=== PATIENT | male | born 1965 | race Caucasian/White ===

== ENCOUNTER 2018-09-26 08:32 | Outpatient (CLI) | payer BC | END 2018-09-26 23:59 | disposition home or self-care (01) | LOC: CFH 08:32 | PROVIDERS: ATTEND Internal Medicine Cardiovascular Disease | DX: I21.19 ST elevation (STEMI) myocardial infarction involving other coronary artery of inferior wall (principal); I10 Essential (primary) hypertension | CPT/HCPCS: 78452; 93017; A9502; J2785 ==

== ENCOUNTER 2018-09-30 07:38 | Inpatient (IN) | payer BC ==
[~2018-09-30] VITALS: Ht 172.7 cm; Wt 135.5 kg
[2018-10-01 07:45] VITALS: BP 167/96
== END 2018-10-01 13:50 | disposition home or self-care (01) | DRG 247 ==
LOC: ED 09:24 → EDIP 10:57 → 5SO 12:33 → DCLOUNGE 10-01 12:35
PROVIDERS: ADMIT Internal Medicine; ATTEND Internal Medicine
PROC: 027035Z Dilation of Coronary Artery, One Artery with Two Drug-eluting Intraluminal Devices, Percutaneous Approach (ICD-10-PCS; principal; 2018-09-30)
PROC: 027034Z Dilation of Coronary Artery, One Artery with Drug-eluting Intraluminal Device, Percutaneous Approach (ICD-10-PCS; 2018-09-30)
PROC: 4A023N7 Measurement of Cardiac Sampling and Pressure, Left Heart, Percutaneous Approach (ICD-10-PCS; 2018-09-30)
PROC: B2111ZZ Fluoroscopy of Multiple Coronary Arteries using Low Osmolar Contrast (ICD-10-PCS; 2018-09-30)
PROC: B2151ZZ Fluoroscopy of Left Heart using Low Osmolar Contrast (ICD-10-PCS; 2018-09-30)
PROC: 5A09357 Assistance with Respiratory Ventilation, Less than 24 Consecutive Hours, Continuous Positive Airway Pressure (ICD-10-PCS; 2018-10-01)
DX: I25.110 Atherosclerotic heart disease of native coronary artery with unstable angina pectoris (principal); I10 Essential (primary) hypertension; E78.5 Hyperlipidemia, unspecified; G47.33 Obstructive sleep apnea (adult) (pediatric); E87.6 Hypokalemia; E66.9 Obesity, unspecified; Z80.1 Family history of malignant neoplasm of trachea, bronchus and lung; Z82.49 Family history of ischemic heart disease and other diseases of the circulatory system; Z86.73 Personal history of transient ischemic attack (TIA), and cerebral infarction without residual deficits; Z87.891 Personal history of nicotine dependence; Z79.899 Other long term (current) drug therapy; Z68.42 Body mass index [BMI] 45.0-49.9, adult; Z79.82 Long term (current) use of aspirin
CPT/HCPCS: 36415; 93458; 99285; C9600; C9601; J3490; 71045; 80048; 80053; 83690; 83735; 83880; 84100; 84443; 84484; 85025; 85520; 85610; 93005; 96374; 99156; 99157; C1769; C1894; G0378; J0583; J1644; J2250; J3010; C1725; C1874; C1887; J0360; J7030; Q9967

== ENCOUNTER 2020-03-06 07:59 | Outpatient (CLI) | payer BC ==
[~2020-03-06 07:59] MED LIST: AMLO-211 PO; ASPI-515 PO/NG; ATOR40TA78 PO; ENAL20TA9 PO; IBUP-1623 PO; LABE100T6 PO; RANI150T4 PO; REGADENOSON 0.4 MG/5 ML SYRINGE ONE; TICA90TA PO
== END 2020-03-07 23:59 | disposition home or self-care (01) ==
LOC: CFH 07:59
PROVIDERS: ATTEND Internal Medicine Cardiovascular Disease
DX: I10 Essential (primary) hypertension (principal); E78.5 Hyperlipidemia, unspecified; I25.10 Atherosclerotic heart disease of native coronary artery without angina pectoris; Z98.61 Coronary angioplasty status
CPT/HCPCS: 78452; 93017; A9502; J2785

== ENCOUNTER 2020-03-10 19:38 | Inpatient (IN) | payer BC ==
[~2020-03-10] VITALS: Ht 172.7 cm; Wt 132.4 kg
[~2020-03-10 19:38] MED LIST changes: -REGADENOSON 0.4 MG/5 ML SYRINGE ONE
--- NOTE | 2020-03-10 20:01 | NUR ---
ASSESSMENT MADE. PA AT BEDSIDE. C/O SUBSTERNAL CP ONGOING ( OFF AND ON ) X 1 MONTH. WORSE TONIGHT. STRESS TEST DONE A WEEK AGO.
--- NOTE | 2020-03-10 20:13 | NUR ---
X RAY AT BEDSIDE.
[2020-03-10 21:07] LABS: BASOPHILS % (AUTO) 0 % (0-1); EOSINOPHILS % (AUTO) 0 % (1-7); LYMPHOCYTES % (AUTO) 11 % (22-44); MEAN CORPUSCULAR HEMOGLOBIN 30.9 pg (27.5-34.5); MEAN CORPUSCULAR HGB CONC 33.4 g/dL (33.2-36.2); MEAN PLATELET VOLUME 8.2 fL (7.4-10.4); MONOCYTES % (AUTO) 6 % (2-9); NEUTROPHILS % (AUTO) 83 % (42-75); PLATELET COUNT 239 x10^3/uL (130-400); RED BLOOD COUNT 4.58 x10^6/uL (4.38-5.82); RED CELL DISTRIBUTION WIDTH 12.7 % (9.4-14.8)
[2020-03-10 21:15] LABS: MD NO
[2020-03-10 21:16] LABS: ALANINE AMINOTRANSFERASE 25 U/L (12-78); ANION GAP 4 mmol/L (5-15); CALCIUM 9.3 mg/dL (8.5-10.1); CHLORIDE 110 mmol/L (98-107)
[2020-03-10 21:20] LABS: ALKALINE PHOSPHATASE 77 U/L (45-117); BILIRUBIN,TOTAL 0.6 mg/dL (0.2-1.0); TOTAL PROTEIN 7.1 g/dL (6.4-8.2); TROPONIN I < 0.015 ng/mL (0.000-0.045)
--- NOTE | 2020-03-10 21:35 | NUR ---
PT RESTING IN BED WITH FAMILY AT PT BEDSIDE, PT ON MONITOR WITH PT VSS. PT DENIED ANY CURRENT WANTS OR NEEDS
[2020-03-10] MEDS ORDERED: ONDANSETRON ODT 4 MG PO PRN (23:00)
[2020-03-10] MEDS ORDERED: POLYETHYLENE GLYCOL 17 GM PACKET PO PRN (23:00)
[2020-03-10] MEDS ORDERED: ACETAMINOPHEN 325 MG TABLET PO PRN (23:00)
[2020-03-10] MEDS ORDERED: morphine SULFATE 10 MG/ML, 1ML IVPush PRN (23:00)
[2020-03-10] MEDS: SODIUM CHLORIDE 0.9% 1,000 ML IV SCH (23:00)
[2020-03-10] MEDS ORDERED: BISACODYL 10 MG SUPP PR PRN (23:00)
[2020-03-10] MEDS ORDERED: NITROGLYCERIN 0.4 MG BOTTLE (25 TABS) SL PRN (23:00)
[2020-03-10 23:40] VITALS: BP 165/95
[2020-03-11] MEDS: AZITHROMYCIN 500 MG in SODIUM CHLORIDE 0.9% 250 ML IV SCH ×2 (00:38→23:28)
[2020-03-11 01:26] VITALS: BP 152/90
[2020-03-11 03:25] LABS: BASOPHILS % (AUTO) 0 % (0-1); EOSINOPHILS % (AUTO) 0 % (1-7); LYMPHOCYTES % (AUTO) 17 % (22-44); MEAN CORPUSCULAR HEMOGLOBIN 31.1 pg (27.5-34.5); MEAN CORPUSCULAR HGB CONC 33.7 g/dL (33.2-36.2); MEAN PLATELET VOLUME 7.8 fL (7.4-10.4); MONOCYTES % (AUTO) 5 % (2-9); NEUTROPHILS % (AUTO) 77 % (42-75); PLATELET COUNT 218 x10^3/uL (130-400); RED CELL DISTRIBUTION WIDTH 12.9 % (9.4-14.8)
[2020-03-11 03:27] LABS: MD NO
[2020-03-11 03:31] LABS: ANION GAP 3 mmol/L (5-15); CALCIUM 9.1 mg/dL (8.5-10.1); CHLORIDE 110 mmol/L (98-107); CREATININE 1.16 mg/dL (0.7-1.3)
[2020-03-11 03:35] LABS: TROPONIN I 0.042 ng/mL (0.000-0.045)
[2020-03-11 08:08] VITALS: BP 172/93
[2020-03-11] MEDS ORDERED: ENALAPRIL 10 MG TABLET ONE (08:48)
[2020-03-11] MEDS: TICAGRELOR 90 MG TABLET PO SCH ×2 (08:52→20:38)
[2020-03-11] MEDS: ASPIRIN 81 MG TABLET EC PO SCH (08:52)
[2020-03-11] MEDS: FAMOTIDINE 20 MG TABLET PO SCH ×2 (08:53→20:38)
[2020-03-11] MEDS: LABETALOL 100 MG TABLET PO SCH ×2 (08:53→20:39)
[2020-03-11] MEDS: AMLODIPINE 10 MG TAB PO SCH (08:53)
[2020-03-11] MEDS: ENALAPRIL 20MG TABLET PO SCH ×2 (08:55→20:39)
[2020-03-11] MEDS: SENNA/DOCUSATE TABLET PO SCH (08:56)
[2020-03-11 09:33] LABS: TROPONIN I 0.041 ng/mL (0.000-0.045)
[2020-03-11 13:30] VITALS: BP 157/91
[2020-03-11 19:39] VITALS: BP 164/97
[2020-03-11] MEDS: ATORVASTATIN 40 MG TABLET PO SCH (20:38)
[2020-03-11] MEDS: SODIUM CHLORIDE 0.9% 1,000 ML IV SCH (22:11)
[2020-03-12 01:17] VITALS: BP 155/89
[2020-03-12 06:01] LABS: ANION GAP 5 mmol/L (5-15); CHLORIDE 110 mmol/L (98-107); CREATININE 1.23 mg/dL (0.7-1.3)
[2020-03-12 06:45] LABS: BASOPHILS % (AUTO) 1 % (0-1); EOSINOPHILS % (AUTO) 3 % (1-7); LYMPHOCYTES % (AUTO) 27 % (22-44); MEAN CORPUSCULAR HEMOGLOBIN 31.5 pg (27.5-34.5); MEAN CORPUSCULAR HGB CONC 34.1 g/dL (33.2-36.2); MEAN PLATELET VOLUME 8.1 fL (7.4-10.4); MONOCYTES % (AUTO) 9 % (2-9); NEUTROPHILS % (AUTO) 60 % (42-75); PLATELET COUNT 235 x10^3/uL (130-400); RED BLOOD COUNT 4.81 x10^6/uL (4.38-5.82); RED CELL DISTRIBUTION WIDTH 13.2 % (9.4-14.8)
[2020-03-12 06:58] LABS: MD NO
[2020-03-12 07:52] VITALS: BP 155/90
[2020-03-12] MEDS ORDERED: POTASSIUM CHLORIDE 20 MEQ TAB.ER.PRT PO ONE (08:00)
[2020-03-12] MEDS: SENNA/DOCUSATE TABLET PO SCH (08:46)
[2020-03-12] MEDS: FAMOTIDINE 20 MG TABLET PO SCH ×2 (08:47→20:31)
[2020-03-12] MEDS: TICAGRELOR 90 MG TABLET PO SCH ×2 (08:47→20:30)
[2020-03-12] MEDS: ASPIRIN 81 MG TABLET EC PO SCH (08:47)
[2020-03-12] MEDS: AMLODIPINE 10 MG TAB PO SCH (08:47)
[2020-03-12] MEDS: LABETALOL 100 MG TABLET PO SCH ×2 (08:47→20:31)
[2020-03-12] MEDS: ENALAPRIL 20MG TABLET PO SCH ×2 (08:50→20:31)
[2020-03-12] MEDS ORDERED: SODIUM CHLORIDE 0.9% 1,000 ML IV SCH ×2 (11:00→16:00)
[2020-03-12 12:05] VITALS: BP 163/92
[2020-03-12] MEDS ORDERED: HEPARIN 1,000 UNITS/ML, 10ML ONE (13:29)
[2020-03-12] MEDS ORDERED: FENTANYL PF 100 MCG/2ML ONE (13:29)
[2020-03-12] MEDS ORDERED: BIVALIRUDIN 250 MG ONE ×3 (13:29→14:27)
[2020-03-12] MEDS ORDERED: VERAPAMIL 2.5 MG/ML, 2ML ONE (13:29)
[2020-03-12] MEDS ORDERED: TICAGRELOR 90 MG TABLET ONE (13:29)
[2020-03-12] MEDS ORDERED: MIDAZOLAM 1 MG/ML, 2ML ONE ×2 (13:30→13:48)
[2020-03-12] MEDS ORDERED: LIDOCAINE-MPF 1%, 5ML ONE (13:30)
[2020-03-12] MEDS ORDERED: ASPIRIN 325 MG TABLET EC ONE (14:27)
[2020-03-12] MEDS ORDERED: BIVALIRUDIN 250 MG in SODIUM CHLORIDE 0.9% 50 ML IV SCH (14:30)
[2020-03-12] MEDS: SODIUM CHLORIDE 0.9% 1,000 ML IV SCH ×3 (14:30→22:30)
[2020-03-12 20:25] VITALS: BP 164/94
[2020-03-12] MEDS: ATORVASTATIN 40 MG TABLET PO SCH (20:30)
[2020-03-12] MEDS: AZITHROMYCIN 500 MG in SODIUM CHLORIDE 0.9% 250 ML IV SCH (23:20)
[2020-03-13 00:30] VITALS: BP 168/97
[2020-03-13] MEDS: SODIUM CHLORIDE 0.9% 1,000 ML IV SCH (05:27)
[2020-03-13 06:26] LABS: BASOPHILS % (AUTO) 1 % (0-1); EOSINOPHILS % (AUTO) 2 % (1-7); LYMPHOCYTES % (AUTO) 18 % (22-44); MEAN CORPUSCULAR HEMOGLOBIN 31.7 pg (27.5-34.5); MEAN CORPUSCULAR HGB CONC 34.2 g/dL (33.2-36.2); MEAN PLATELET VOLUME 7.9 fL (7.4-10.4); MONOCYTES % (AUTO) 9 % (2-9); NEUTROPHILS % (AUTO) 70 % (42-75); PLATELET COUNT 241 x10^3/uL (130-400); RED BLOOD COUNT 4.92 x10^6/uL (4.38-5.82); RED CELL DISTRIBUTION WIDTH 13.1 % (9.4-14.8)
[2020-03-13 06:31] LABS: MD NO
[2020-03-13 06:40] LABS: CHLORIDE 111 mmol/L (98-107)
[2020-03-13] MEDS ORDERED: POTASSIUM CHLORIDE 20 MEQ TAB.ER.PRT PO ONE ×2 (08:00→12:00)
[2020-03-13 08:02] VITALS: BP 165/82
[2020-03-13] MEDS: ASPIRIN 81 MG TABLET EC PO SCH (08:23)
[2020-03-13] MEDS: ENALAPRIL 20MG TABLET PO SCH (08:23)
[2020-03-13] MEDS: AMLODIPINE 10 MG TAB PO SCH (08:23)
[2020-03-13] MEDS: LABETALOL 100 MG TABLET PO SCH ×2 (08:24→09:00)
[2020-03-13] MEDS: FAMOTIDINE 20 MG TABLET PO SCH (08:24)
[2020-03-13] MEDS: TICAGRELOR 90 MG TABLET PO SCH (08:24)
[2020-03-13] MEDS: SENNA/DOCUSATE TABLET PO SCH (08:24)
[2020-03-13 09:38] LABS: ANION GAP 8 mmol/L (5-15); CALCIUM 9.6 mg/dL (8.5-10.1); CREATININE 1.25 mg/dL (0.7-1.3)
[2020-03-13 11:14] VITALS: BP 164/94
[2020-03-13] MEDS ORDERED: DOXY-162 PO (11:25)
[2020-03-13] MEDS ORDERED: LABE100T6 PO (11:50)
== END 2020-03-13 12:53 | disposition home or self-care (01) | DRG 246 ==
LOC: ED 20:59 → EDIP 21:59 → 5SO 23:20 → DCLOUNGE 03-13 12:42
PROVIDERS: ADMIT Family Medicine; ATTEND Internal Medicine
PROC: 5A09357 Assistance with Respiratory Ventilation, Less than 24 Consecutive Hours, Continuous Positive Airway Pressure (ICD-10-PCS; 2020-03-11)
PROC: 027034Z Dilation of Coronary Artery, One Artery with Drug-eluting Intraluminal Device, Percutaneous Approach (ICD-10-PCS; principal; 2020-03-12)
PROC: 4A023N7 Measurement of Cardiac Sampling and Pressure, Left Heart, Percutaneous Approach (ICD-10-PCS; 2020-03-12)
PROC: B2111ZZ Fluoroscopy of Multiple Coronary Arteries using Low Osmolar Contrast (ICD-10-PCS; 2020-03-12)
PROC: B2151ZZ Fluoroscopy of Left Heart using Low Osmolar Contrast (ICD-10-PCS; 2020-03-12)
PROC: 5A09357 Assistance with Respiratory Ventilation, Less than 24 Consecutive Hours, Continuous Positive Airway Pressure (ICD-10-PCS; 2020-03-12)
PROC: 5A09357 Assistance with Respiratory Ventilation, Less than 24 Consecutive Hours, Continuous Positive Airway Pressure (ICD-10-PCS; 2020-03-13)
DX: I25.110 Atherosclerotic heart disease of native coronary artery with unstable angina pectoris (principal); J18.9 Pneumonia, unspecified organism; Z68.41 Body mass index [BMI] 40.0-44.9, adult; E66.9 Obesity, unspecified; E78.5 Hyperlipidemia, unspecified; Z88.8 Allergy status to other drugs, medicaments and biological substances; E87.6 Hypokalemia; G47.33 Obstructive sleep apnea (adult) (pediatric); I11.9 Hypertensive heart disease without heart failure; I25.2 Old myocardial infarction; Z72.0 Tobacco use; Z80.1 Family history of malignant neoplasm of trachea, bronchus and lung; Z86.73 Personal history of transient ischemic attack (TIA), and cerebral infarction without residual deficits; Z87.11 Personal history of peptic ulcer disease
CPT/HCPCS: 36415; 93458; C9600; 71045; 80048; 80053; 83735; 84100; 84484; 85025; 93005; 94660; 99156; 99157; C1769; C1894; G0378; J0456; J0583; J1644; J2250; J3010; C1725; C1874; C1887; J7030; J7050; Q9967